=== PATIENT | male | born 1945 | race Caucasian/White ===

== ENCOUNTER 2017-01-18 12:57 | Emergency (ER) | payer MEDICARE ==
[~2017-01-18] VITALS: Ht 185.4 cm; Wt 72.6 kg
[2017-01-18] MEDS ORDERED: LOSA50TA21 PO (13:08)
[2017-01-18] MEDS ORDERED: SOTA80TA PO (13:08)
[2017-01-18] MEDS ORDERED: IV NORMAL SALINE 1000 ML BAG IV ONE (13:15)
[2017-01-18 13:25] LABS: BASOPHILS # (AUTO) 0.2 K/uL (0.0-8.0); EOSINOPHILS # (AUTO) 0.1 K/uL (0.0-0.7); EOSINOPHILS % (AUTO) 1.5 % (0.0-7.0); HEMATOCRIT 43.6 % (40-50); HEMOGLOBIN 14.2 G/DL (14.0-18.0); LYMPHOCYTES # (AUTO) 2.1 K/UL (0.8-4.8); LYMPHOCYTES % (AUTO) 21.9 % (20.5-51.5); MEAN CORPUSCULAR HEMOGLOBIN 30.6 UUG (27.0-31.0); MEAN CORPUSCULAR HGB CONC 33 g/dL (32.0-37.0); MEAN CORPUSCULAR VOLUME 94.1 FL (82.0-92.0); MONOCYTES # (AUTO) 0.6 K/UL (0.1-1.30); MONOCYTES % (AUTO) 6.6 % (0.0-11.0); NEUTROPHILS # (AUTO) 6.6 K/UL (1.8-8.9); PLATELET COUNT (AUTO) 216 K/UL (150-450); RED BLOOD CELL COUNT(AUTO) 4.64 MIL/UL (4.7-6.1); WHITE BLOOD COUNT (AUTO) 9.6 K/UL (4.0-11.2)
[2017-01-18 13:28] LABS: CARBON DIOXIDE 30 mmol/L (21-32); CHLORIDE 106 mmol/L (98-107); CREATININE 0.9 mg/dL (0.6-1.3); GLUCOSE 119 mg/dL (74-106); POTASSIUM 4.1 mmol/L (3.5-5.1); UREA NITROGEN, BLOOD 22 mg/dL (7-18)
--- NOTE | 2017-01-18 13:30 | NUR ---
nikko at bedside to check on the pt pace maker. nikko talked to aileen perez and frederick.
--- NOTE | 2017-01-18 15:34 | NUR ---
Pt evaluated by MD for syncopal episode. Patient discharged home in stable conditon. Written and verbal after care instructions given. Patient verbalizes understanding of instructions.
[2017-01-18 15:35] VITALS: BP 124/78
== END 2017-01-18 15:36 | disposition home or self-care (01) ==
LOC: ER 12:57
DX: R55 Syncope and collapse (principal); R42 Dizziness and giddiness; R53.1 Weakness; I10 Essential (primary) hypertension; Z95.0 Presence of cardiac pacemaker
CPT/HCPCS: 36415; 70030-TC; 71010; 85025; 93005; A4663; J7030

== ENCOUNTER 2021-06-18 15:58 | Emergency (ER) | payer MEDICARE ==
[~2021-06-18] VITALS: Ht 182.9 cm; Wt 72.6 kg
[~2021-06-18 15:58] MED LIST: LOSA50TA39 PO; SOTA80TA PO
--- NOTE | 2021-06-18 16:25 | NUR ---
Called [facility] ( ) with the number provided by the patient on his pacemaker/defib card. There was no answer and the recorded message stated they are closed, to call your doctor if needed or call back during the hours they are open.
--- NOTE | 2021-06-18 16:30 | NUR ---
Dr. Miguel notified about no answer at the number provided on pt's pacemaker card.
[2021-06-18 16:39] LABS: HEMATOCRIT 39.8 % (36.7-47.1); MEAN CORPUSCULAR HEMOGLOBIN 31.8 uug (23.8-33.4); MEAN CORPUSCULAR VOLUME 93.6 fL (73.0-96.2); PLATELET COUNT (AUTO) 244 K/uL (152-348)
[2021-06-18 16:45] LABS: CREATININE 0.8 mg/dL (0.6-1.3); POTASSIUM 3.9 mmol/L (3.5-5.1)
[2021-06-18 16:51] LABS: BILIRUBIN,DIRECT 0.1 mg/dL (0.0-0.2); BILIRUBIN,TOTAL 0.5 mg/dL (0.2-1.0); TOTAL PROTEIN, SERUM 6.8 g/dL (6.4-8.2)
--- NOTE | 2021-06-18 16:51 | NUR ---
Patient discharged to home in stable condition. Written and verbal after care instructions given. Patient verbalizes understanding of instructions. Stressed follow up or return to ER for worsening s/s.
== END 2021-06-18 16:52 | disposition left against medical advice (07) ==
LOC: ER 15:58
DX: T82.118A Breakdown (mechanical) of other cardiac electronic device, initial encounter (principal); Y71.0 Diagnostic and monitoring cardiovascular devices associated with adverse incidents; Y92.89 Other specified places as the place of occurrence of the external cause; I10 Essential (primary) hypertension; E78.5 Hyperlipidemia, unspecified; F17.290 Nicotine dependence, other tobacco product, uncomplicated
CPT/HCPCS: 36415; 70030-TC; 83735; 84100; 85025; 93005; A4663